=== PATIENT | female | born 1970 | race Caucasian/White ===

== ENCOUNTER 2018-08-28 21:36 | Emergency (ER) | payer BC ==
[2018-08-28] MEDS ORDERED: Lidocaine 1% 30 ML SDV INJECT ONE (22:08)
--- NOTE | 2018-08-28 22:10 | EDM.PDOC ---
ED HPI GENERAL MEDICAL PROBLEM - General Chief Complaint: Laceration Stated Complaint: CUT FINGERS WITH GLASS [id number] Time Seen by Provider: 08/29/18 01:00 Source of Information: Reports: Patient History Limitations: Reports: No Limitations - History of Present Illness INITIAL COMMENTS - FREE TEXT/NARRATIVE: ED with report of cut between fingers on right hand. Cleaning jar with jagged edge. Unsure if sliver of glass in hand. Some trouble stopping bleeding and discomfort at wound site. bleeding controlled with pressure and minimal sharp sensation in wound Right Hand Pain Score (Numeric/FACES): 2 - Related Data Allergies Allergy/AdvReac Type Severity Reaction Status Date / Time aspirin Allergy Other Verified 08/28/18 21:47 peach Allergy Hives Verified 08/28/18 21:47 Penicillins Allergy Hives Verified 08/28/18 21:47 Home Meds: Home Meds . [No Known Home Meds] 08/28/18 [History] Past Medical History HEENT History: Reports: Impaired Vision - Past Surgical History Female Surgical History: Reports: Hysterectomy Musculoskeletal Surgical History: Reports: Other (See Below) Other Musculoskeletal Surgeries/Procedures:: back surgery with spinal implant Social & Family History - Tobacco Use Smoking Status *Q: Never Smoker - Caffeine Use Caffeine Use: Reports: Coffee - Recreational Drug Use Recreational Drug Use: No ED ROS GENERAL - Review of Systems Review Of Systems: ROS reveals no pertinent complaints other than HPI. ED EXAM, SKIN/RASH Exam: See Below Exam Limited By: Intoxication General Appearance: Alert, No Apparent Distress Ears: Normal External Exam Throat/Mouth: Normal Lips, Normal Voice, No Airway Compromise Head: Atraumatic, Normocephalic Neck: Normal Inspection Respiratory/Chest: No Respiratory Distress Cardiovascular: Regular Rate, Rhythm Extremities: Other (4mm superficial shallow laceration to web between 4th and 5th finger left. No active bleeding. Wound explored no FB noted. ) Neurological: Alert, Oriented, Normal Cognition Psychiatric: Normal Affect Skin: Warm, Wound/Incision ED SKIN PROCEDURES - Additional/Other Procedure(s) Other (Free Text) Procedure(s): Superficial lacertaion web space explored, no active bleeding, No FB visualized. Patient tolerated well. No complications Bandaide dressing Paitient instructed to follow up if increased pain redness or swelling. Course - Vital Signs Last Recorded V/S: Last Vital Signs Temp 98.7 F 08/28/18 21:47 Pulse 81 08/29/18 01:38 Resp 18 08/29/18 01:38 BP 124/61 08/29/18 01:38 Pulse Ox 95 08/29/18 01:38 - Orders/Labs/Meds Meds: Medications Discontinued Medications Generic Name Dose Route Start Last Admin Trade Name Rafael PRN Reason Stop Dose Admin Lidocaine HCl 30 ml 08/28/18 22:08 08/29/18 01:38 Xylocaine-Mpf 1% INJECT 08/28/18 22:09 Not Given ONETIME ONE Departure - Departure Time of Disposition: 01:42 Disposition: Home, Self-Care 01 Condition: Good Clinical Impression: Laceration - Discharge Information *PRESCRIPTION DRUG MONITORING PROGRAM REVIEWED*: Not Applicable Instructions: Laceration Care, Adult, [id number] Referrals: PCP,None [Primary Care Provider] - Forms: ED Department Discharge Additional Instructions: keep wound clean and dry cover with bandaide if bleeding tylenol for discomfort follow up if redness, swelling or drainage.
== END 2018-08-29 01:52 | disposition home or self-care (01) ==
LOC: DL.ED 21:36
DX: S61.412A Laceration without foreign body of left hand, initial encounter (principal); Z88.8 Allergy status to other drugs, medicaments and biological substances; Z88.0 Allergy status to penicillin; Z91.018 Allergy to other foods; W25.XXXA Contact with sharp glass, initial encounter
CPT/HCPCS: 99282

== ENCOUNTER 2022-06-12 22:47 | Emergency (ER) | payer BC ==
[2022-06-12] MEDS ORDERED: Sodium Chloride 0.9% 10 ML Syringe FLUSH PRN (23:10)
== END 2022-06-13 00:49 | disposition home or self-care (01) ==
LOC: DL.ED 22:47
DX: R07.89 Other chest pain (principal); Z88.6 Allergy status to analgesic agent; Z88.0 Allergy status to penicillin; Z91.048 Other nonmedicinal substance allergy status; Z90.710 Acquired absence of both cervix and uterus
CPT/HCPCS: 36415; 80053; 84484; 85025; 93005; 99283; J3490